=== PATIENT | female | born 1965 | race Caucasian/White ===

== ENCOUNTER 2023-06-21 19:59 | Emergency (ER) | payer OTHER ==
[~2023-06-21] VITALS: Ht 170.2 cm; Wt 65.8 kg
[~2023-06-21 19:59] MED LIST: BENADRYL50 MG PO; PREDNISONE10 MG/DOSE PO
[2023-06-21] MEDS ORDERED: HYDROCHLOROTHIA25 MG (20:13)
[2023-06-21] MEDS ORDERED: ATORVASTATIN CA20 MG (20:13)
[2023-06-21] MEDS ORDERED: LASIX20 MG (20:13)
== END 2023-06-21 23:32 | disposition home or self-care (01) ==
LOC: ER 19:59
DX: T14.90XA Injury, unspecified, initial encounter (principal); V89.2XXA Person injured in unspecified motor-vehicle accident, traffic, initial encounter; Y93.89 Activity, other specified; Y92.89 Other specified places as the place of occurrence of the external cause; Y99.9 Unspecified external cause status